=== PATIENT | male | born 1965 | race Caucasian/White ===

== ENCOUNTER 2025-05-21 12:45 | Emergency (ER) | payer OTHER, SELFPAY ==
--- OUTSIDE RECORDS SUMMARY | 2025-05-21 12:46 | XMS_ITS | Clinical Summary ---
Author Organization [facility] Address [address] [place] [id number] Care Team Providers Care Supervisor Of Officials Name Role Phone Fanny Fields NP Primary Care Provider Unavailab le Allergies No known active allergies Medications No known medications Family History Medical History Relation Name Comments Hypertension Brother Hypertension Father Relation Name Status Comments Brother Father Social History Tobacco Use Types Packs/Day Years Used Date Smoking Tobacco: Never Alcohol Use Standard Drinks/Week Comments Yes 0 (1 standard drink = 0.6 oz pur e alcohol) occasional Sex and Gender Information Value Date Recorded Sex Assigned at Not on file Legal Sex Male 6:58 AM [employer] Gender Identity Not on file Sexual Orientation Not on file 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 Not on file Not on file Not on fi le Obstetrics History Last Filed Vital Signs Vital Sign Reading Time Taken Comments Blood Pressure 118/64 03/26/2016 3:06 PM CDT Pulse 72 03/26/2016 3:06 PM CDT Temperature 36.7 C (98.1 F) 03/26/2016 3:06 PM CDT Respiratory Rate 16 05/31/2007 9:22 AM CDT Oxygen Saturation - - Inhaled Oxygen Concentration - - Weight 102.2 kg (225 lb 3.2 oz) 03/26/2016 3:06 PM CDT Height 184.8 cm (6' 0.75) 03/26/2016 3:06 PM CD T Body Mass Index 29.92 03/26/2016 3:06 PM CDT Plan of Treatment Health Maintenance Due Date Last Done Comments Tetanus booster 1977 HIV for age 15-65 1981 Hepatitis C screening for age 18-79 1984 Hepatitis B series for 19+ ( 1 of 3 - 19+ 3-dose series) 1985 Colonoscopy through age 75 2011 Lipids for age 45-75 2011 Pneumococcal series for age 50+ (1 of 1 - PCV) 017 Zoster (shingles) series for age 50+ (1 of 2) 11/09/19 17 BMI (ht and wt on same day) for age 18+ 03/26/2017 0 03/26/2016 Depression screening for age 12+ 03/26/2017 03/26/20 16 COVID-19 vaccine series ( season) 4 Influenza Vaccine (#1) 2025 Insurance [employer] Care Teams Supervisor Of Officials Relationship Specialty Start Date End Date Fanny Fields NP PCP - General 05/31/07
[2025-05-21 13:00] VITALS: BP 134/90; PULSE 110; RESP 20; TEMP 37.9; O2SAT 98; BMI 30.2
--- NOTE | 2025-05-21 15:12 | ED.SKABFB ---
HPI - Skin/Abscess/Foreign Bdy General Time Seen by Provider: 15:12 Date Seen: 05/21/25 Chief complaint: Skin/Abscess/Foreign Body Stated complaint: cyst on back Time Seen by Provider: 05/21/25 15:00 Source: patient and RN notes reviewed Mode of arrival: ambulatory Limitations: no limitations History of Present Illness HPI narrative: This 59-year-old male is presenting to the ER with an abscess on his back. He was referred by Urgent Care. He has had night sweats over the last 3 nights. He has pain and swelling in this left posterior shoulder area. He states he had a cyst there that had been there for about 20 years but started to bother him recently. He was referred by Urgent Care for incision and drainage. He does state that he may pass out with the procedure, does admit to not liking medical procedures. He is not aware of any history of MRSA. He has not had a history of any significant skin infections. Does have a little dermatitis on his hands but otherwise states he is healthy. Related Data Home Medications ?Medication ?Instructions ?Recorded ?Confirmed No Known Home Medications 05/21/25 05/21/25 Allergies Allergy/AdvReac Type Severity Reaction Status Date / Time No Known Drug Allergies Allergy Verified 05/21/25 12:58 Review of Systems Status of ROS: Reports: 6 or more systems reviewed and unremarkable except as noted in History and below Exam Const: Vital Signs, click to edit/add: Vital Signs - 24 hr 05/21/25 13:00 05/21/25 15:42 05/21/25 15:52 Temperature 100.3 F H Pulse Rate [Pulse Oximeter] 110 H 98 Respiratory Rate 20 17 Blood Pressure [Ri ght Upper Arm] 134/90 H Pulse Oximetry 98 99 99 Oxygen Delivery Me thod Room Air Room Air 05/21/25 15:59 Temperature Pulse Rate [Pulse Oximeter] Respiratory Rate Blood Pressure [Ri ght Upper Arm] Pulse Oximetry 99 Oxygen Delivery Me thod This 59-year-old male is alert, interactive, no apparent distress. Sclera clear, face atraumatic, speech is normal. Lungs are clear, good air entry, no wheezing crackles, tachypnea, no accessory muscle use. CV regular rate, slightly fast, no murmur, normal S1-S2. On his left lateral back lateral to the scapula is a large erythematous fluctuant area with 2 foci of pointing of an abscess. This very likely is a large infected sebaceous cyst. Documenting provider has reviewed patient's vital signs: yes Course Course ED Course: Patient is consented on incision and drainage. We will stab lotion IV and get some baseline labs, will give him a L of IV fluids as he states he has already feeling lightheaded just with the minimal discussion and examination. We will make sure he is laying down for this. I will obtain a culture. Once nursing staff has the IV in place, fluids running and labs drawn, will proceed with incision and drainage. Reevaluation(s) Time of Reevaluation #1: 16:21 Reevaluation #1: Reviewed with patient that I think he should be able to take oral antibiotics. Labs reviewed. He is doing fine after the procedure, did almost become syncopal when the IV was placed but we did start some IV fluids, maintained hemodynamic stability through the procedure. Patient has opted to have his antibiotics from [facility], prescribing doxycycline 100 mg twice a day for 7 days. Vital Signs Vital signs: Initial Vital Signs Temperature 100.3 F H 05/21/25 13:00 Temperature Source Temporal Artery Scan 05/21/25 13:00 Pulse Rate 110 H 05/21/25 13:00 Respiratory Rate 20 05/21/25 13:00 Blood Pressure 134/90 H 05/21/25 13:00 Blood Pressure Mean 104 05/21/25 13:00 Pulse Oximetry 98 05/21/25 13:00 Oxygen Delivery Method Room Air 05/21/25 13:00 Vital Signs Temperature 100.3 F H 05/21/25 13:00 Pulse Rate 110 H 05/21/25 13:00 Respiratory Rate 20 05/21/25 13:00 Blood Pressure 134/90 H 05/21/25 13:00 Pulse Oximetry 98 05/21/25 13:00 Oxygen Delivery Method Room Air 05/21/25 13:00 Temperature 100.3 F H 05/21/25 13:00 Pulse Rate 98 05/21/25 15:52 Respiratory Rate 17 05/21/25 15:52 Blood Pressure 134/90 H 05/21/25 13:00 Pulse Oximetry 99 05/21/25 15:59 Oxygen Delivery Method Room Air 05/21/25 15:52 Medications Administered Medications: Generic Name Dose Route Start Last Admin Trade Name Freq PRN Reason Stop Dose Admin Sodium Chloride 1,000 mls @ 1,000 mls/hr 05/21/25 15:19 05/21/25 15:40 0.9 % Sodium Chloride 1000 Ml IV 05/21/25 16:18 1,000 mls/hr .Q1H GEOVANNI Administration MDM - Skin/Abscess/Foreign Bdy Lab Data Attestation: I reviewed the patient's lab results. Labs: Lab Results 05/21/25 Range/Units 15:35 WBC 11.90 H (4.50-11.00) K/uL RBC 5.11 (4.30-5.90) m/uL Hgb 14.6 (13.5-17.5) gm/dL Hct 43.3 (37.0-53.0) % MCV 85 (80-100) fL MCH 29 (26-34) pg MCHC 34 (32-36) gm/dL RDW Coeff of Cynthia 12.0 (11.5-15.5) % Plt Count 283 (140-440) K/uL Neut % (Auto) 70.8 (42.0-72.0) % Lymph % (Auto) 16.7 L (20-44) % [place] % (Auto) 10.6 (0.0-11.0) % Eos % (Auto) 1.2 (0.0-7.0) % Baso % (Auto) 0.4 (0.0-3.0) % Neut # (Auto) 8.40 H (1.7-7.0) K/uL Lymph # (Auto) 2.00 (0.90-2.90) K/uL [place] # (Auto) 1.30 H (0.00-0.90) K/UL Eos # (Auto) 0.10 (0.00-0.50) K/uL Baso # (Auto) 0.00 (0.00-0.30) K/uL Abs Immat Gran (auto) 0.00 (0.00-0.30) K/uL Imm/Tot Granulo (auto) 0.3 % Sodium 138 (135-149) mmol/L Potassium 4.4 (3.6-5.1) mmol/L Chloride 101 (96-114) mmol/L Carbon Dioxide 29 (20-32) mmol/L Anion Gap 8 (7-15) mEq/L BUN 15 (7-30) mg/dL Creatinine 1.0 (0.5-1.5) mg/dL Estimated Creat Clear 93.62 Estimated GFR 87 ml/min Glucose 110 (60-115) mg/dL Calcium 9.8 (8.4-10.6) mg/dL C-Reactive Protein 2.7 H (0.5-1.0) mg/dL Discharge Plan Discharge Clinical Impression: Abscess of skin or subcutaneous tissue Qualifiers: Site of cutaneous abscess: trunk Site of cutaneous abscess of trunk: back Qualified Code(s): L02.212 - Cutaneous abscess of back [any part, except buttock] Patient Disposition: Home, Self-Care Condition: Stable Instructions: Abscess Incision and Drainage (DC) Additional Instructions: This was an infected sebaceous cyst. Will place you on antibiotics, take as prescribed (doxycycline 100 mg twice a day for 7 days). Can remove this dressing tomorrow and then just use bandages over this. This wound may continue to drain. I would leave the packing in. This packing should be removed on Thursday or Thursday. Do recommend that you schedule a clinic follow-up on Thursday or Thursday to recheck this wound and have packing removed. I also recommend that you get a follow-up appointment with General surgery for plan to potentially excise the sebaceous cyst at some point in the future as it is very likely to return. You can call the [facility] at [phone] to get a follow-up appointment with General surgery scheduled. You certainly can use Tylenol or ibuprofen for discomfort. I would anticipate that your fevers should improve her be gone within the next 1-2 days as we have incised and drained this abscess. If there is further concern with this wound, feel your infection is not improving with the antibiotics and the opening of the abscess, feel you are worsening at any point, do need to be re-evaluated. You may shower tomorrow, if the packing should fall out, there is no need to worry about it. Prescriptions: No Action No Known Home Medications Follow Up/Referrals: Maldonado Worrell MD [Primary Care Provider, Orthopedics] Stand Alone [facility] Info Instructions Procedures I/D Type: abscess Site: back Pre procedure diagnosis: Abscess of infected sebaceous cyst on left back Post procedure diagnosis: Same Site marking: not applicable Verification/time out: correct patient, correct site and correct procedure Name of person performing procedure: Tanesha Araujo Local Anesthetic: lidocaine 2% (10 mL drawn up but only 7 mL required) Amount of anesthesia used (mL): 7 Technique: other (#10 blade used) Amount of fluid expressed (mL): 30 Irrigation: Yes Packing used?: plain Estimated blood loss (if any): less than 5mls Specimens removed (if any): Wound culture sent Conclusion: patient tolerated procedure
[2025-05-21 15:42] VITALS: O2SAT 99
[2025-05-21 15:44] LABS: Hematocrit 43.3 % (37.0-53.0); Hemoglobin* 14.6 gm/dL (13.5-17.5); Immature Granulocytes Pct Auto 0.3 %; Mean Corpuscular HGB Conc 34 gm/dL (32-36); Mean Corpuscular Hemoglobin 29 pg (26-34); Mean Corpuscular Volume 85 fL (80-100); RDW Coefficient of Variation % 12.0 % (11.5-15.5); Red Blood Count 5.11 m/uL (4.30-5.90); White Blood Count* 11.90 K/uL (4.50-11.00)
[2025-05-21 15:47] LABS: Immature Granulocytes Abs Auto 0.00 K/uL (0.00-0.30); Lymphocytes Absolute Auto 2.00 K/uL (0.90-2.90); Slide Review Reflex No
[2025-05-21 15:52] VITALS: PULSE 98; RESP 17; O2SAT 99
[2025-05-21 15:57] LABS: Chloride* 101 mmol/L (96-114); Potassium* 4.4 mmol/L (3.6-5.1); Sodium* 138 mmol/L (135-149)
[2025-05-21 15:59] VITALS: O2SAT 99
[2025-05-21 16:01] LABS: Anion Gap 8 mEq/L (7-15); Blood Urea Nitrogen* 15 mg/dL (7-30); Calcium* 9.8 mg/dL (8.4-10.6); Carbon Dioxide* 29 mmol/L (20-32); Creatinine* 1.0 mg/dL (0.5-1.5); Est. Creatinine Clearance* 93.62; Estimated Glomerular Filt Rate 87 ml/min; Glucose* 110 mg/dL (60-115)
[2025-05-21 16:11] VITALS: BP 155/102; PULSE 86; RESP 18; TEMP 37.7; O2SAT 99
[2025-05-21] MEDS: lidocaine HCL 2 % MULTIDOSE 20 ML VIAL 10 ML INJECTION (16:26)
== END 2025-05-21 16:35 | disposition home or self-care (01) ==
LOC: ED 20:47
PROVIDERS: Emergency Provider Family Medicine; PCP Orthopaedic Surgery
DX: L02.212 Cutaneous abscess of back [any part, except buttock and flank] (principal)
CPT/HCPCS: 10060; 36415; 80048; 85025; 86140; 87070; 94761; 99283; J7030